=== PATIENT | male | born 1985 | race Two or more races ===

== ENCOUNTER → 2017-01-14 03:22 | Emergency (ER) | payer SELFPAY ==
[~2017-01-14 03:22] MED LIST: Iohexol 300* (CONTRAST) 10 ML SDV IV ONE; Ketorolac INJ* 30 MG/ML 1 ML VIAL IV ONE; NS 0.9% 1000 ML* 1,000 ML IV SCH; Ondansetron INJ* 2 MG/ML VIAL IV ONE
[2017-01-14] MEDS: NS 0.9% 1000 ML* 2,000 ML IV ONE ×2 (05:01→07:35)
[2017-01-14 05:49] LABS: Hematocrit 50 % (42-52); Hemoglobin 17.1 g/dl (14.0-18.0); Mean Corpuscular HGB Conc 34 g/dl (31-36); Mean Corpuscular Hemoglobin 30 pg (27-31); Mean Corpuscular Volume 88 fL (80-94); Mean Platelet Volume 9 um3 (7.4-10.4); Red Blood Count 5.72 10^6/ul (4.0-5.4); Red Cell Distribution Width 13 % (10.5-15); White Blood Count 11.2 10^3/ul (3.5-10.8)
[2017-01-14 05:59] LABS: ALT 24 U/L (7-52); Albumin 5.2 g/dL (3.2-5.2); Alkaline Phosphatase 40 U/L (34-104); BUN/Creatinine Ratio 16.5 (8-20); Blood Urea Nitrogen 17 mg/dL (6-24); C Reactive Protein 4.23 mg/L (< 5.00); CO2 Carbon Dioxide 26 mmol/L (22-32); Calcium 10.3 mg/dL (8.6-10.3); Chloride 96 mmol/L (101-111); EGFR Non-African American 83.2 (>60); Globulin 3.5 g/dL (2-4); Glucose 87 mg/dL (70-100); Lipase 45 U/L (11.0-82.0); Sodium 132 mmol/L (133-145); Total Protein 8.7 g/dL (6.4-8.9)
[2017-01-14 07:04] LABS: Anion Gap 10 mmol/L (2-11)
--- NOTE | 2017-01-14 08:04 | RAD ---
CLINICAL HISTORY: Diffuse abdominal pain COMPARISON: None TECHNIQUE: Multiple contiguous axial CT scans were obtained of the abdomen and pelvis after the administration of intravenous contrast. Coronal and sagittal multiplanar reformations are submitted for review. Oral contrast was administered. Delayed images were obtained through the abdomen and pelvis. FINDINGS: LUNG BASES: The lung bases are clear. LIVER: The liver is normal in shape, size, contour, and attenuation. BILE DUCTS: There is no intrahepatic or extrahepatic biliary dilatation. GALLBLADDER: The gallbladder is normal, without pericholecystic inflammatory change. PANCREAS: The pancreas is normal, without mass or ductal dilatation. SPLEEN: Normal in size and appearance. UPPER GI TRACT: Evaluation of the gastrointestinal tract is limited by incomplete gastric distention. The upper GI tract is unremarkable. SMALL BOWEL AND MESENTERY: The small bowel is normal in contour, course, and caliber. There is no obstruction or dilatation. COLON: The colon is normal in contour, course, caliber. There is no pericolonic inflammatory change. There is a tubular, vermiform, hollow viscus that is blind-ending and originates from the cecum, consistent with the appendix. There is mild mucosal enhancement of the base with mild dilatation of the base of the appendix measuring up to 0.9 cm in size. There is no appreciable periappendiceal fluid collection to suggest abscess. ADRENALS: Normal bilaterally. KIDNEYS: The kidneys are normal in shape, size, contour, and axis. There is no hydronephrosis or nephrolithiasis. BLADDER: The bladder is smooth in contour. PELVIC ORGANS: The prostate gland is normal. The seminal vesicles are symmetric. AORTA: The aorta is normal. IVC: Unremarkable LYMPH NODES: There is no lymphadenopathy by size criteria. ABDOMINAL WALL: There is no evidence for abdominal wall hernia. BONES AND SOFT TISSUES: Unremarkable OTHER: None IMPRESSION: MILD DILATATION AND ENHANCEMENT OF THE APPENDIX, SUGGESTIVE OF EARLY APPENDICITIS IN THE CORRECT CLINICAL SETTING. THERE IS NO LOCULATED FLUID COLLECTION TO SUGGEST ABSCESS.
--- NOTE | 2017-01-14 08:37 | ED ---
Ruperto Novoa Rebecca, scribed for Crispin Acosta MD on 01/14/17 at 0434 . Abdominal Pain/Male - HPI Summary HPI Summary: Pt is a 31 y/o M who presents to ED c/o abdominal pain. Pain began about 3 days ago, initially in the epigastric region and now diffusely throughout the abdomen. Pain is currently severe, ranked 10/10. Sx aggravated and alleviated by nothing. Additionally c/o dry mouth, vomiting, constipation, myalgias and insomnia secondary to pain. Denies fever. No changes in urinary habits. Took a laxative last night and he had small BM, but without significant improvement in pain. No PSHx on the abdomen. NKDA. - History of Current Complaint Chief Complaint: EDAbdPain Stated Complaint: ABD PAIN/CONSTIPATION/CANT SLEEP Time Seen by Provider: 01/14/17 04:26 Hx Obtained From: Patient Onset/Duration: Lasting Days - 3 days ago, Still Present Severity Currently: Severe Pain Intensity: 10 Pain Scale Used: 0-10 Numeric Location: Diffuse Aggravating Factor(s): Nothing Alleviating Factor(s): Nothing Associated Signs And Symptoms: Positive: Constipation, Vomiting. Negative: Fever - Allergies/Home Medications Allergies/Adverse Reactions: Allergies Allergy/AdvReac Type Severity Reaction Status Date / Time No Known Allergies Allergy Verified 01/14/17 03:34 PMH/Surg Hx/FS Hx/Imm Hx Endocrine/Hematology History: Denies: Hx Diabetes Cardiovascular History: Denies: Hx Coronary Artery Disease, Hx Hypertension History: Reports: Hx Kidney Stones Infectious Disease History: No Infectious Disease History: Denies: Traveled Outside the [place] in Last 30 Days - Family History Known Family History: Negative: Cardiac Disease, Hypertension, Diabetes - Social History Alcohol Use: None Substance Use Type: Reports: None Review of Systems Negative: Fever Positive: Other - Dry mouth Positive: Abdominal Pain, Vomiting, Other - Constipation Positive: Myalgia Positive: Other - Insomnia secondary to pain All Other Systems Reviewed And Are Negative: Yes Physical Exam - Summary Physical Exam Summary: General: well-appearing, mlid pain distress Skin: warm, color reflects adequate perfusion, dry Head: normal Eyes: EOMI, BA ENT: oral mucosa dry Neck: supple, nontender Respiratory: CTA, breath sounds present Cardiovascular: RRR Abdomen: soft, diffuse, mild tenderness Bowel: hypoactive Musculoskeletal: normal, strength/ROM intact Neurological: normal, sensory/motor intact, A&O x3 Psychological: affect/mood appropriate Triage Information Reviewed: Yes Vital Signs On Initial Exam: Initial Vitals Temp Pulse Resp BP Pulse Ox 98.6 F 80 16 118/86 97 01/14/17 03:30 01/14/17 03:30 01/14/17 03:30 01/14/17 03:30 01/14/17 03:30 Vital Signs Reviewed: Yes Diagnostics - Vital Signs Vital Signs Temp Pulse Resp BP Pulse Ox 01/14/17 03:30 98.6 F 80 16 118/86 97 - Laboratory Lab Results: Lab Results 01/14/17 01/14/17 01/14/17 Range/Units 05:10 05:10 05:10 WBC 11.2 H (3.5-10.8) 10^3/ul RBC 5.72 H (4.0-5.4) 10^6/ul Hgb 17.1 (14.0-18.0) g/dl Hct 50 (42-52) % MCV 88 (80-94) fL MCH 30 (27-31) pg MCHC 34 (31-36) g/dl RDW 13 (10.5-15) % Plt Count 255 (150-450) 10^3/ul MPV 9 (7.4-10.4) um3 Neut % (Auto) 77.9 (38-83) % Lymph % (Auto) 15.9 L (25-47) % Barnes % (Auto) 5.9 (1-9) % Eos % (Auto) 0.1 (0-6) % Baso % (Auto) 0.2 (0-2) % Absolute Neuts (auto) 8.7 H (1.5-7.7) 10^3/ul Absolute Lymphs (auto) 1.8 (1.0-4.8) 10^3/ul Absolute Monos (auto) 0.7 (0-0.8) 10^3/ul Absolute Eos (auto) 0 (0-0.6) 10^3/ul Absolute Basos (auto) 0 (0-0.2) 10^3/ul Absolute Nucleated RBC 0.01 10^3/ul Nucleated RBC % 0.1 Sodium 132 L (133-145) mmol/L Potassium TNP Chloride 96 L (101-111) mmol/L Carbon Dioxide 26 (22-32) mmol/L Anion Gap 10 (2-11) mmol/L BUN 17 (6-24) mg/dL Creatinine 1.03 (0.67-1.17) mg/dL Est GFR ( Amer) 107.0 (>60) Est GFR (Non-Af Amer) 83.2 (>60) BUN/Creatinine Ratio 16.5 (8-20) Glucose 87 (70-100) mg/dL Lactic Acid 1.2 (0.5-2.0) mmol/L Calcium 10.3 (8.6-10.3) mg/dL Total Bilirubin 1.30 H (0.2-1.0) mg/dL AST TNP ALT 24 (7-52) U/L Alkaline Phosphatase 40 (34-104) U/L C-Reactive Protein 4.23 (< 5.00) mg/L Total Protein 8.7 (6.4-8.9) g/dL Albumin 5.2 (3.2-5.2) g/dL Globulin 3.5 (2-4) g/dL Albumin/Globulin Ratio 1.5 (1-3) Lipase 45 (11.0-82.0) U/L Result Diagrams: 01/14/17 05:10 01/14/17 05:10 Lab Statement: Any lab studies that have been ordered have been reviewed, and results considered in the medical decision making process. - CT CT Abd/Pel CT Interpretation Completed By: Radiologist - Pending radiology interpretation. See [employer] for results. Abdominal Pain Fem Course/Dx - Course Assessment/Plan: Pt medications reviewed this visit. DISCUSSED RESTULTS WITH PATIENT/PARTNER. SURGERY WILL SEE IN ED. NO CRITICAL CARE TIME. - Diagnoses Provider Diagnoses: Acute appendicitis Discharge - Discharge Plan Condition: Stable Disposition: ADMITTED TO [facility] Referrals: No Primary Care Phys,NOPCP [Primary Care Provider] - The documentation as recorded by the Ruperto azar Rebecca accurately reflects the service I personally performed and the decisions made by me, Crispin Acosta MD.
[2017-01-14 09:11] LABS: Urine Bilirubin Negative (Negative); Urine Glucose Negative (Negative); Urine Nitrite Negative (Negative)
[2017-01-14 11:37] VITALS: BP 100/56
--- NOTE | 2017-01-15 00:14 | CONS ---
SURGICAL CONSULTATION NOTE: DATE OF CONSULT: 01/14/17 - EMERGENCY DEPT ATTENDING SURGEON: Dr. Andrey Reilly. CHIEF COMPLAINT: Abdominal pain. HISTORY OF PRESENT ILLNESS: This is a generally healthy 31-year-old male who reports a 2 to 3 day history of gradually increasing abdominal discomfort. Initially, he described having gas like sensation throughout the abdomen. This increased significantly yesterday evening despite taking Tums, Pepto-Bismol, and a laxative. He states that pain continues to be throughout the abdomen and also with some radiation to the lower back. He reports chills, but no fever. He did have multiple loose stools after drinking the oral contrast for the CT scan. He has never had similar pain. He has had a past history of nephrolithiasis, but states that this is very much less painful. He denies nausea or vomiting, though is somewhat anorexic. PAST MEDICAL HISTORY: Nephrolithiasis. PAST SURGICAL HISTORY: None. CURRENT MEDICATIONS: None. DRUG ALLERGIES: None known. FAMILY HISTORY: Noncontributory. SOCIAL HISTORY: The patient lives in his own apartment. He works in a [employer] shop. He smokes less than 1 to 2 cigarettes per day. He denies use of alcohol or other recreational drugs. REVIEW OF SYSTEMS: General: No recent constitutional symptoms or acute illnesses other than as noted above. Cardiovascular: No chest pain, palpitations, or history of heart murmur. Respiratory: No history of asthma, chronic cough, or shortness of breath. GI: As above per HPI. : No symptoms of dysuria or hematuria. Endocrine: No diabetes or thyroid dysfunction. PHYSICAL EXAM: Height 5 feet 9 inches, weight 148 pounds. He is afebrile. Vital signs are stable. General: Well-nourished, well-developed male, in no acute distress. He appears comfortable on the ED stretcher. Skin: Warm and dry. No suspicious rashes or lesions. HEENT: Pupils equal and round, reactive. EOMs intact. No conjunctival pallor. Oropharynx: Mucous membranes dry. Teeth in good repair. No intraoral lesions. Neck: No lymphadenopathy in the cervical or supraclavicular regions. No thyromegaly or masses. Heart: Regular rate and rhythm. No murmur. Lungs: Clear to auscultation. No rales or wheezes. Abdomen: Flat, nondistended. Bowel sounds present and normal, soft with only a hint of tenderness to deep palpation in the right lower quadrant. Abdomen is otherwise soft and nontender. There is no referred tenderness, rebound, or guarding. No palpable masses or organomegaly. No palpable inguinal hernias. Genitalia and rectal otherwise not done. Back: No spinous process or CVA tenderness. Extremities: No edema. Neurological: Grossly intact. DIAGNOSTIC STUDIES/LAB DATA: Of note, white blood cell count 11,200, hemoglobin 17.1, hematocrit 50, total bilirubin 1.3. Liver function tests are normal. Lipase was normal. Lactic acid was normal at 1.2. CRP was normal at 4.23. Urinalysis was significant for specific gravity of greater than 1.060 and 1+ ketones. CT scan of the abdomen and pelvis with oral and IV contrast was performed showing an appendix with mildly dilated base of 0.9 cm, but without periappendiceal or inflammatory changes. No other significant findings on CT. IMPRESSION: Unlikely represent acute appendicitis. PLAN: The patient was seen and examined for confirmation of findings by Dr. Reilly, who agreed that this was unlikely to represent acute appendicitis. He was given our office information for contact if symptoms change or worsen again. Otherwise, his disposition will be per the ED physician. His case was discussed directly by myself with Dr. Gomez. REGGIE VICK [id number]/[facility] #: [id number]
== END | disposition home or self-care (01) ==
LOC: ED 03:22
DX: K35.80 Unspecified acute appendicitis (principal); K59.00 Constipation, unspecified; R11.10 Vomiting, unspecified; R10.9 Unspecified abdominal pain; M79.1 Myalgia
CPT/HCPCS: 36415; 74177; 80053; 81003; 83605; 83690; 85025; 86140; 96374; 96375; 99282; J1885; J2405; Q9967